=== PATIENT | female | born 1945 | race Caucasian/White ===

== ENCOUNTER 2022-01-05 12:31 | Outpatient (CLI) | payer MEDICARE ==
[2022-01-05 13:14] LABS: Actual Bicarbonate (HCO3a) 28.1 mEq/L (22-28); CO2 Tension 44.6 mmHg (35.0-45.0); Calcium, Ionized (arterial) 1.26 mmol/L (1.12-1.30); Hemoglobin (Hb) 14.8 g/dL (12.0-16.0); O2 Tension (PaO2), arterial 62.3 mmHg (> 70.0); Potassium - ABG Lab 3.6 mmol/L (3.70-5.30); Puncture Site RRA; pH, Arterial 7.42 (7.35-7.45)
== END 2022-01-05 12:32 | disposition home or self-care (01) ==
LOC: CSHCP 12:31
PROVIDERS: ATTEND Internal Medicine Critical Care Medicine
DX: J44.9 Chronic obstructive pulmonary disease, unspecified (principal)
CPT/HCPCS: 36600; 82805; 94060; 94726; 94729; 94760

== ENCOUNTER 2023-06-25 14:57 | Emergency (ER) | payer MEDICARE | END 2023-06-25 16:27 | disposition home or self-care (01) | LOC: CSHERS 14:57 | DX: M25.551 Pain in right hip (principal); M25.552 Pain in left hip; E66.9 Obesity, unspecified; J44.9 Chronic obstructive pulmonary disease, unspecified; E78.00 Pure hypercholesterolemia, unspecified; E11.9 Type 2 diabetes mellitus without complications; W07.XXXA Fall from chair, initial encounter | CPT/HCPCS: 72170 ==